=== PATIENT | female | born 1955 | race Caucasian/White ===

== ENCOUNTER 2020-07-07 05:19 | Observation (INO) ==
[2020-07-07] MEDS ORDERED: Naloxone 0.4 MG/ML INJ IVP PRN (07:48)
[2020-07-07] MEDS ORDERED: Perflutren Lipid Microsphere 1.3 ML in 0.9 % Sodium Chloride 8.7 ML IVP PRN (07:53)
[2020-07-07] MEDS ORDERED: Nitroglycerin 0.4 MG TAB.SUBL SL PRN (07:54)
[2020-07-07] MEDS ORDERED: Ipratropium/Albuterol Neb 3 ML IH PRN (07:54)
[2020-07-07] MEDS ORDERED: Dextrose Gel 15 GM/37.5 ML TUBE PO PRN ×2 (07:55)
[2020-07-07] MEDS ORDERED: *HR* Dextrose 50 % in Water (Vial) 50 ML VIAL IVP PRN (07:55)
[2020-07-07] MEDS ORDERED: D5% in Water 1,000 ML IVC PRN (07:55)
[2020-07-07 07:59] LABS: Adenovirus Not Detected (Not Detect); Bordetella Pertussis Not Detected (Not Detect); Chlamydophila pneumoniae Not Detected (Not Detect); Coronavirus 229E Not Detected (Not Detect); Coronavirus HKU1 Not Detected (Not Detect); Coronavirus NL63 Not Detected (Not Detect); Coronavirus OC43 Not Detected (Not Detect); Human Metapneumovirus Not Detected (Not Detect); Human Rhinovirus/Enterovirus DETECTED (Not Detect); Influenza A Subtype 2009 H1 Not Detected (Not Detect); Influenza B Not Detected (Not Detect); Mycoplasma pneumoniae Not Detected (Not Detect); Parainfluenza Virus 1 Not Detected (Not Detect); Parainfluenza Virus 2 Not Detected (Not Detect); Parainfluenza Virus 3 Not Detected (Not Detect); Parainfluenza Virus 4 Not Detected (Not Detect); Respiratory Syncytial Virus Not Detected (Not Detect); SARS-CoV-2 Not Detected (Not Detect)
[2020-07-07] MEDS: cloNIDine HCL 0.1 MG TABLET PO SCH ×4 (08:04→20:12)
[2020-07-07] MEDS ORDERED: methylPREDNISolone 125 MG/2 ML VIAL IVP ONE (09:12)
[2020-07-07 09:23] LABS: Basophils % 0.5 %; Eosinophils # 0.2 K/mcL (0.0-0.6); Eosinophils % 2.1 %; Hematocrit 34.7 % (35.3-44.9); Hemoglobin 11.2 g/dL (11.5-15.4); Immature Granulocytes % 0.3 % (0-4); Lymphocytes # 1.3 K/mcL (0.6-4.6); Lymphocytes % 16.4 %; Mean Corpuscular HGB Conc 32.3 g/dL (31.6-35.5); Mean Corpuscular Hemoglobin 28.6 pg (28.0-33.3); Mean Corpuscular Volume 88.7 fL (83.0-100.0); Mean Platelet Volume 10.5 fL (9.4-12.4); Monocytes # 0.5 K/mcL (0.0-1.3); Monocytes % 6.2 %; Neutrophils # 5.7 K/mcL (1.6-8.9); Platelet Count 226 K/mcL (140-400); Red Blood Count 3.91 M/mcL (3.82-4.97); Red Cell Distribution Width 14.6 % (11.5-14.5); Segmented Neutrophils % 74.5 %; White Blood Count 7.6 K/mcL (4.3-11.1)
[2020-07-07 09:45] LABS: BUN/Creatinine Ratio 19 (6-26); Blood Urea Nitrogen 16 mg/dL (8-23); Calcium 9.1 mg/dL (8.6-10.3); Carbon Dioxide 27 mEq/L (23-29); Chloride 106 mEq/L (98-107); Chol/HDL Ratio 3.7 (0-4.9); Cholesterol 147 mg/dL (< 200); Glucose 152 mg/dL (70-105); HDL Cholesterol 40 mg/dL (40-59); LDL Cholesterol,Calculated 63 mg/dL (< 100); Magnesium 1.8 mg/dL (1.6-2.6); Osmolality,Calculated 298 (280-300); Phosphorous 4.2 mg/dL (2.7-4.5); Potassium 3.9 mEq/L (3.5-5.1); Sodium 142 mEq/L (136-145); Triglycerides 218 mg/dL (< 150); Troponin I < 0.03 ng/mL (< 0.04); eGFR For African Americans > 60 (> 60); eGFR For Non-African Americans > 60 (> 60)
[2020-07-07 10:30] LABS: Estimated Average Glucose 163 mg/dl
[2020-07-07 10:33] LABS: INR 0.9; Prothrombin Time 10.3 Seconds (9.4-12.1)
[2020-07-07] MEDS: Ipratropium/Albuterol Neb 3 ML IH SCH ×5 (10:49→23:16)
[2020-07-07] MEDS: Insulin LISPRO 300 UNITS/3 ML VIAL SQ SCH ×2 (12:47→16:47)
[2020-07-07] MEDS: MethylPREDNISolone 40 MG/ML VIAL IVP SCH ×2 (16:48→23:33)
[2020-07-07] MEDS: *HR* Heparin 5,000 UNIT/ML VIAL SQ SCH (17:31)
[2020-07-07] MEDS ORDERED: *HR* OxyCODONE Immed Rel 5 MG TABLET PO ONE (20:13)
[2020-07-07] MEDS ORDERED: Acetaminophen 325 MG TABLET PO ONE (23:53)
[2020-07-08] MEDS: Ipratropium/Albuterol Neb 3 ML IH SCH ×6 (03:35→23:56)
[2020-07-08] MEDS: *HR* Heparin 5,000 UNIT/ML VIAL SQ SCH ×2 (05:17→16:22)
[2020-07-08] MEDS: cefTRIAXone 1,000 MG in Water for inj. (sterile) 10 ML IVP SCH (07:54)
[2020-07-08] MEDS: cloNIDine HCL 0.1 MG TABLET PO SCH ×3 (07:55→20:21)
[2020-07-08] MEDS: MethylPREDNISolone 40 MG/ML VIAL IVP SCH ×3 (07:55→23:35)
[2020-07-08] MEDS: Insulin LISPRO 300 UNITS/3 ML VIAL SQ SCH ×3 (08:03→16:54)
[2020-07-08] MEDS: *HR* OxyCODONE/APAP 10/325 TABLET PO SCH ×2 (08:36→20:22)
[2020-07-08] MEDS: Gabapentin 400 MG CAPSULE PO SCH ×3 (08:36→20:22)
[2020-07-08 09:35] LABS: Basophils % 0.1 %; Hemoglobin 11.2 g/dL (11.5-15.4); Immature Granulocytes % 0.8 % (0-4); Lymphocytes # 0.7 K/mcL (0.6-4.6); Lymphocytes % 5.5 %; Mean Corpuscular HGB Conc 31.1 g/dL (31.6-35.5); Mean Corpuscular Hemoglobin 27.6 pg (28.0-33.3); Mean Corpuscular Volume 88.7 fL (83.0-100.0); Mean Platelet Volume 11.1 fL (9.4-12.4); Monocytes # 0.3 K/mcL (0.0-1.3); Monocytes % 2.6 %; Neutrophils # 11.2 K/mcL (1.6-8.9); Platelet Count 246 K/mcL (140-400); Red Blood Count 4.06 M/mcL (3.82-4.97); Red Cell Distribution Width 14.3 % (11.5-14.5)
[2020-07-08 09:39] LABS: White Blood Count 12.3 K/mcL (4.3-11.1)
[2020-07-08 09:55] LABS: BUN/Creatinine Ratio 22 (6-26); Blood Urea Nitrogen 24 mg/dL (8-23); Carbon Dioxide 24 mEq/L (23-29); Chloride 103 mEq/L (98-107); Glucose 291 mg/dL (70-105); Osmolality,Calculated 303 (280-300); Potassium 3.9 mEq/L (3.5-5.1); Sodium 139 mEq/L (136-145); eGFR For African Americans > 60 (> 60); eGFR For Non-African Americans 50 (> 60)
[2020-07-08] MEDS: lamoTRIgine 100 MG TABLET PO SCH (16:21)
[2020-07-08] MEDS ORDERED: Insulin DETEMIR 100 UNIT/ML X5UNITS SQ SCH (21:00)
[2020-07-09] MEDS: Ipratropium/Albuterol Neb 3 ML IH SCH ×3 (03:32→12:14)
[2020-07-09] MEDS: *HR* Heparin 5,000 UNIT/ML VIAL SQ SCH (04:34)
[2020-07-09 05:37] LABS: Basophils % 0.1 %; Hematocrit 32.6 % (35.3-44.9); Hemoglobin 10.4 g/dL (11.5-15.4); Immature Granulocytes % 1.1 % (0-4); Lymphocytes # 0.5 K/mcL (0.6-4.6); Lymphocytes % 5.3 %; Mean Corpuscular HGB Conc 31.9 g/dL (31.6-35.5); Mean Corpuscular Hemoglobin 28.5 pg (28.0-33.3); Mean Corpuscular Volume 89.3 fL (83.0-100.0); Mean Platelet Volume 10.6 fL (9.4-12.4); Monocytes # 0.3 K/mcL (0.0-1.3); Monocytes % 2.7 %; Neutrophils # 9.2 K/mcL (1.6-8.9); Platelet Count 205 K/mcL (140-400); Red Blood Count 3.65 M/mcL (3.82-4.97); Red Cell Distribution Width 14.3 % (11.5-14.5); Segmented Neutrophils % 90.8 %; White Blood Count 10.1 K/mcL (4.3-11.1)
[2020-07-09 05:56] LABS: Calcium 8.5 mg/dL (8.6-10.3); Potassium 4.6 mEq/L (3.5-5.1)
[2020-07-09] MEDS: Gabapentin 400 MG CAPSULE PO SCH (08:16)
[2020-07-09] MEDS: lamoTRIgine 100 MG TABLET PO SCH (08:17)
[2020-07-09] MEDS: cloNIDine HCL 0.1 MG TABLET PO SCH (08:17)
[2020-07-09] MEDS: *HR* OxyCODONE/APAP 10/325 TABLET PO SCH (08:17)
[2020-07-09] MEDS: MethylPREDNISolone 40 MG/ML VIAL IVP SCH (08:18)
[2020-07-09] MEDS: cefTRIAXone 1,000 MG in Water for inj. (sterile) 10 ML IVP SCH (08:18)
[2020-07-09] MEDS: Insulin LISPRO 300 UNITS/3 ML VIAL SQ SCH ×2 (08:31→11:14)
[2020-07-09] MEDS ORDERED: NIFEdipine XL (24 HR) 60 MG TAB.ER.24 PO SCH (09:00)
[2020-07-09 10:52] VITALS: BP 181/75
== END 2020-07-09 13:15 | disposition home or self-care (01) ==
LOC: 3BNU → SUATTDRO 06:52 → CDU 07:03 → 3ANU 08:47
PROVIDERS: ADMIT Internal Medicine; ATTEND Internal Medicine

== ENCOUNTER 2021-10-30 14:50 | Inpatient (IN) ==
[2021-10-30] MEDS ORDERED: Ondansetron 4 MG/2 ML VIAL IVP PRN (15:46)
[2021-10-30] MEDS ORDERED: Melatonin 3 MG TABLET PO PRN (15:46)
[2021-10-30] MEDS ORDERED: traZODone 50 MG TABLET PO PRN (16:16)
[2021-10-30] MEDS: cefTRIAXone 1,000 MG in Water for inj. (sterile) 10 ML IVP SCH (18:31)
[2021-10-30] MEDS: Gabapentin 100 MG CAPSULE PO SCH (20:31)
[2021-10-30] MEDS: Metoprolol XL (24 HR) Succ 25 MG TAB.ER.24H PO SCH (20:31)
[2021-10-31] MEDS: Acetaminophen 325 MG TABLET PO PRN ×2 (00:11→08:46)
[2021-10-31 03:53] LABS: ABG Base Excess -4 mEq/L (-2 to 3); ABG HCO3 22 mEq/L (21-27); ABG Oxygen Saturation 82 % (95-98); ABG PCO2 42 mmHg (35-45); ABG PH 7.32 pH Units (7.32-7.45); ABG PO2 50 mmHg (85-104); ABG TCO2 23 mEq/L (20-26); Blood Gas Modality NIV
[2021-10-31] MEDS ORDERED: *HR* LORazepam 2 MG/ML VIAL IVP ONE (05:06)
[2021-10-31 05:08] LABS: VBG HCO3 22 mEq/L (21-27); VBG PCO2 37 mmHg (41-51); VBG PH 7.37 pH Units (7.32-7.42); VBG PO2 125 mmHg (25-50)
[2021-10-31 05:08] LABS: Hematocrit 33.1 % (35.3-44.9); Hemoglobin 10.6 g/dL (11.5-15.4); Mean Corpuscular Hemoglobin 28.3 pg (28.0-33.3); Mean Corpuscular Volume 88.5 fL (83.0-100.0); Mean Platelet Volume 10.9 fL (9.4-12.4); Platelet Count 223 K/mcL (140-400); Red Blood Count 3.74 M/mcL (3.82-4.97); White Blood Count 13.1 K/mcL (4.3-11.1)
[2021-10-31] MEDS: Ipratropium 1 PUFF INHALER IH SCH ×6 (05:17→23:12)
[2021-10-31 05:36] LABS: INR 1.1; Prothrombin Time 12.5 Seconds (9.4-12.1)
[2021-10-31 05:39] LABS: Albumin 3.1 g/dL (3.5-5.7); Albumin/Globulin Ratio 1.1 (1.1-2.2); Bilirubin,Total 0.2 mg/dL (0.3-1.0); Calcium 7.8 mg/dL (8.6-10.3); Globulin 2.9 g/dL (2.4-3.5); Phosphorous 4.4 mg/dL (2.7-4.5); Potassium 4.2 mEq/L (3.5-5.1)
[2021-10-31] MEDS ORDERED: *HR* Enoxaparin 40 MG/0.4 ML SYRINGE SQ SCH (06:00)
[2021-10-31] MEDS ORDERED: Artificial Tears SOLN 15 ML BOTTLE BOTH EYES PRN (07:20)
[2021-10-31] MEDS: FentaNYL (PF) 1,000 MCG/100 ML IV.SOLN IVC SCH ×3 (07:30→21:25)
[2021-10-31 07:49] LABS: ABG Base Excess -5 mEq/L (-2 to 3); ABG HCO3 21 mEq/L (21-27); ABG Oxygen Saturation 85 % (95-98); ABG PCO2 43 mmHg (35-45); ABG PH 7.31 pH Units (7.32-7.45); ABG PO2 54 mmHg (85-104); ABG TCO2 23 mEq/L (20-26); Blood Gas VT 470 cc
[2021-10-31] MEDS: Gabapentin 100 MG CAPSULE PO SCH ×2 (08:00→13:20)
[2021-10-31] MEDS: Dexamethasone Sodium Phos/PF 10 MG/ML VIAL IVP SCH (08:46)
[2021-10-31] MEDS: Chlorhexidine Rinse 15 ML MOUTHWASH MM SCH ×2 (08:46→20:01)
[2021-10-31] MEDS: cefTRIAXone 1,000 MG in Water for inj. (sterile) 10 ML IVP SCH (08:46)
[2021-10-31] MEDS: Pantoprazole 40 MG VIAL IVP SCH (08:47)
[2021-10-31] MEDS ORDERED: BuPROPion SR (12 HR) 150 MG TABLET PO SCH (09:00)
[2021-10-31] MEDS ORDERED: lamoTRIgine 100 MG TABLET PO SCH (09:00)
[2021-10-31] MEDS ORDERED: NIFEdipine XL (24 HR) 60 MG TAB.ER.24 PO SCH (09:00)
[2021-10-31 09:25] LABS: Bilirubin,Urine Negative (Negative); Blood,Urine Trace (Negative); Budding Yeast,Urine Moderate per hpf (None Seen); Clarity,Urine Turbid (Clear); Color,Urine Yellow (Yellow); Glucose,Urine (UA) 100 mg/dL (Normal); Ketones,Urine Negative (Negative); Leukocyte Esterase,Urine Negative (Negative); Mucus,Urine Few per lpf (None-Few); Nitrite,Urine Negative (Negative); Protein,Urine 200 mg/dL (Neg-Trace); RBC,Urine 0-3 per hpf (0-3); Squamous Epithelial Cell,Urine Few per hpf (None-Few); Urobilinogen,Urine Normal (Normal); WBC,Urine 0-3 per hpf (0-3)
[2021-10-31 09:33] LABS: Sodium, Urine 27.3 mEq/L
[2021-10-31] MEDS: Insulin DETEMIR 100 UNIT/ML X5UNITS SUBQ SCH (10:00)
[2021-10-31] MEDS: Artificial Tears SOLN 15 ML BOTTLE BOTH EYES SCH ×5 (10:00→23:33)
[2021-10-31] MEDS ORDERED: 0.9 % Sodium Chloride 1,000 ML ONE (10:27)
[2021-10-31] MEDS: Metoprolol XL (24 HR) Succ 25 MG TAB.ER.24H PO SCH ×2 (11:00→19:57)
[2021-10-31] MEDS ORDERED: *HR* Dextrose 50 % in Water (Syg) 50 ML SYRINGE IVP PRN (12:54)
[2021-10-31] MEDS: Sodium Bicarbonate 75 MEQ in 0.45 % Sodium Chloride 1,000 ML IVC SCH (13:25)
[2021-10-31] MEDS ORDERED: 0.9 % Sodium Chloride 1,000 ML IVC SCH (13:30)
[2021-10-31 13:53] LABS: ABG Base Excess -6 mEq/L (-2 to 3); ABG HCO3 20 mEq/L (21-27); ABG Oxygen Saturation 98 % (95-98); ABG PCO2 40 mmHg (35-45); ABG PH 7.32 pH Units (7.32-7.45); ABG PO2 111 mmHg (85-104); ABG TCO2 22 mEq/L (20-26); Blood Gas VT 470 cc
[2021-10-31] MEDS ORDERED: *HR* Heparin 5,000 UNIT/ML VIAL IVP ONE (13:54)
[2021-10-31] MEDS ORDERED: *HR* Heparin 5,000 UNIT/ML VIAL IVP PRN ×2 (13:54)
[2021-10-31] MEDS ORDERED: *HR* Midazolam HCl 2 MG/2 ML VIAL IVP ONE (13:55)
[2021-10-31] MEDS ORDERED: *HR* Propofol 200 MG/20 ML VIAL IVP ONE (13:55)
[2021-10-31] MEDS ORDERED: *HR* Succinylcholine 200 MG/10 ML VIAL IVP ONE (13:55)
[2021-10-31] MEDS ORDERED: *HR* Midazolam HCl 5 MG/5 ML VIAL IVP ONE (13:55)
[2021-10-31] MEDS ORDERED: Vancomycin 1,750 MG in 0.9 % Sodium Chloride 250 ML IVPB SCH (14:00)
[2021-10-31] MEDS ORDERED: Vancomycin 2,000 MG/520 ML IV.SOLN IVPB ONE (14:50)
[2021-10-31] MEDS: Heparin 25,000UNIT/250ML 1/2NS 25,000 UNIT/250 ML IV.SOLN IVC SCH (16:07)
[2021-10-31] MEDS: Cefepime HCl 1,000 MG in 0.9 % Sodium Chloride Mini Bag 100 ML IVP SCH ×2 (16:10→23:51)
[2021-10-31] MEDS: MetroNIDAZOLE 500 MG/100 ML 500 MG/100 ML BAG IVPB SCH (16:10)
[2021-10-31] MEDS: Insulin LISPRO 300 UNITS/3 ML VIAL SUBQ SCH ×2 (18:05→23:52)
[2021-10-31 23:21] LABS: INR 1.2; Prothrombin Time 13.2 Seconds (9.4-12.1)
[2021-10-31 23:25] LABS: ABG Base Excess -6 mEq/L (-2 to 3); ABG HCO3 20 mEq/L (21-27); ABG Oxygen Saturation 97 % (95-98); ABG PCO2 40 mmHg (35-45); ABG PH 7.31 pH Units (7.32-7.45); ABG PO2 97 mmHg (85-104); ABG TCO2 21 mEq/L (20-26); Blood Gas Modality ASSIST CONTROL; Blood Gas VT 470 cc
[2021-10-31 23:26] LABS: Heparin anti-factor XA UFH 1.74 IU/mL (0.30-0.70)
[2021-11-01] MEDS: MetroNIDAZOLE 500 MG/100 ML 500 MG/100 ML BAG IVPB SCH ×4 (01:21→23:52)
[2021-11-01] MEDS: Ipratropium 1 PUFF INHALER IH SCH ×6 (03:13→22:54)
[2021-11-01] MEDS: Artificial Tears SOLN 15 ML BOTTLE BOTH EYES SCH ×6 (03:30→23:50)
[2021-11-01 04:13] LABS: Hematocrit 30.2 % (35.3-44.9); Hemoglobin 9.8 g/dL (11.5-15.4); Mean Corpuscular HGB Conc 32.5 g/dL (31.6-35.5); Mean Corpuscular Hemoglobin 28.6 pg (28.0-33.3); Mean Platelet Volume 10.7 fL (9.4-12.4); Platelet Count 193 K/mcL (140-400); Red Blood Count 3.43 M/mcL (3.82-4.97); Red Cell Distribution Width 15.3 % (11.5-14.5); White Blood Count 11.1 K/mcL (4.3-11.1)
[2021-11-01 04:24] LABS: Calcium 7.5 mg/dL (8.6-10.3); Magnesium 2.2 mg/dL (1.6-2.6); Phosphorous 6.3 mg/dL (2.7-4.5); Potassium 4.4 mEq/L (3.5-5.1)
[2021-11-01] MEDS ORDERED: Calcium Gluconate 1gm/50mL 1 GM/50 ML BAG IVPB PRN (04:40)
[2021-11-01 05:00] LABS: ABG Base Excess -6 mEq/L (-2 to 3); ABG HCO3 20 mEq/L (21-27); ABG Oxygen Saturation 96 % (95-98); ABG PCO2 38 mmHg (35-45); ABG PH 7.32 pH Units (7.32-7.45); ABG PO2 86 mmHg (85-104); ABG TCO2 21 mEq/L (20-26); Blood Gas Modality ASSIST CONTROL; Blood Gas VT 470 cc
[2021-11-01] MEDS: FentaNYL (PF) 1,000 MCG/100 ML IV.SOLN IVC SCH ×4 (05:25→21:30)
[2021-11-01] MEDS: Insulin LISPRO 300 UNITS/3 ML VIAL SUBQ SCH ×4 (06:06→23:51)
[2021-11-01] MEDS: Pantoprazole 40 MG VIAL IVP SCH (08:22)
[2021-11-01] MEDS: Dexamethasone Sodium Phos/PF 10 MG/ML VIAL IVP SCH (08:23)
[2021-11-01] MEDS: Chlorhexidine Rinse 15 ML MOUTHWASH MM SCH ×2 (08:23→20:14)
[2021-11-01] MEDS: lamoTRIgine 100 MG TABLET GTUBE SCH (08:23)
[2021-11-01] MEDS: Cefepime HCl 1,000 MG in 0.9 % Sodium Chloride Mini Bag 100 ML IVP SCH ×2 (08:23→17:30)
[2021-11-01] MEDS: Insulin DETEMIR 100 UNIT/ML X5UNITS SUBQ SCH (08:29)
[2021-11-01] MEDS ORDERED: Lidocaine/EPI 1:100k 1% 50 ML VIAL ONE (09:13)
[2021-11-01] MEDS ORDERED: Heparin 1,000 UNITS/500 mL 500 ML ONE (09:13)
[2021-11-01] MEDS ORDERED: 0.9 % Sodium Chloride 250 ML IVC PRN (10:29)
[2021-11-01] MEDS ORDERED: 0.9 % Sodium Chloride 1,000 ML PRIME SCH (10:30)
[2021-11-01] MEDS ORDERED: *HR* Midazolam HCl 2 MG/2 ML VIAL IVP ONE (10:33)
[2021-11-01] MEDS: Sodium Bicarbonate 75 MEQ in 0.45 % Sodium Chloride 1,000 ML IVC SCH (10:38)
[2021-11-01] MEDS: Metoprolol XL (24 HR) Succ 25 MG TAB.ER.24H PO SCH ×2 (10:38→20:14)
[2021-11-01] MEDS ORDERED: *HR* Heparin 5,000 UNIT/ML VIAL ONE (11:21)
[2021-11-01] MEDS: Midazolam HCl 50 MG/100 ML IV.SOLN IVC SCH (11:25)
[2021-11-01 11:31] LABS: Hepatitis B Surface Antibody < 3.10 mIU/mL
[2021-11-01 11:41] LABS: Hepatitis B Surface Antigen Nonreactive (Nonreactive)
[2021-11-01] MEDS ORDERED: *HR* Heparin 10,000 UNIT/10 ML VIAL IV PRN (11:56)
[2021-11-01 13:18] LABS: Dohle Bodies Present (Not Present); Lymphocytes # 0.2 K/mcL (0.6-4.6); Neutrophils # 10.8 K/mcL (1.6-8.9)
[2021-11-01 13:20] LABS: Platelet Estimate Normal (Normal)
[2021-11-01] MEDS: Heparin 25,000UNIT/250ML 1/2NS 25,000 UNIT/250 ML IV.SOLN IVC SCH ×2 (17:31→23:08)
[2021-11-02] MEDS: Midazolam HCl 50 MG/100 ML IV.SOLN IVC SCH ×2 (00:56→15:25)
[2021-11-02] MEDS: FentaNYL (PF) 1,000 MCG/100 ML IV.SOLN IVC SCH ×4 (03:08→19:05)
[2021-11-02] MEDS: Artificial Tears SOLN 15 ML BOTTLE BOTH EYES SCH ×6 (03:16→23:11)
[2021-11-02 03:37] LABS: Basophils % 0.1 %; Hematocrit 29.5 % (35.3-44.9); Hemoglobin 9.7 g/dL (11.5-15.4); Lymphocytes # 0.2 K/mcL (0.6-4.6); Lymphocytes % 1.7 %; Mean Corpuscular HGB Conc 32.9 g/dL (31.6-35.5); Mean Corpuscular Hemoglobin 28.6 pg (28.0-33.3); Monocytes # 0.2 K/mcL (0.0-1.3); Monocytes % 1.7 %; Neutrophils # 10.1 K/mcL (1.6-8.9); Nucleated Red Blood Cells 0.2 /100 WBC (0); Platelet Count 228 K/mcL (140-400); Red Blood Count 3.39 M/mcL (3.82-4.97); Red Cell Distribution Width 15.4 % (11.5-14.5); Segmented Neutrophils % 92.5 %; White Blood Count 10.9 K/mcL (4.3-11.1)
[2021-11-02 04:11] LABS: Platelet Estimate Normal (Normal)
[2021-11-02 04:12] LABS: Calcium 7.5 mg/dL (8.6-10.3); Potassium 3.7 mEq/L (3.5-5.1)
[2021-11-02] MEDS: Ipratropium 1 PUFF INHALER IH SCH ×6 (04:14→22:50)
[2021-11-02] MEDS: Insulin LISPRO 300 UNITS/3 ML VIAL SUBQ SCH ×3 (05:08→17:15)
[2021-11-02] MEDS: Cefepime HCl 1,000 MG in 0.9 % Sodium Chloride Mini Bag 100 ML IVP SCH ×2 (05:11→17:16)
[2021-11-02 05:19] LABS: ABG Base Excess -1 mEq/L (-2 to 3); ABG HCO3 24 mEq/L (21-27); ABG Oxygen Saturation 96 % (95-98); ABG PCO2 40 mmHg (35-45); ABG PH 7.39 pH Units (7.32-7.45); ABG PO2 83 mmHg (85-104); ABG TCO2 25 mEq/L (20-26); Blood Gas Modality ASSIST CONTROL; Blood Gas VT 470 cc
[2021-11-02] MEDS ORDERED: 0.9 % Sodium Chloride 250 ML IVC PRN (06:56)
[2021-11-02] MEDS: MetroNIDAZOLE 500 MG/100 ML 500 MG/100 ML BAG IVPB SCH ×3 (08:49→23:14)
[2021-11-02] MEDS: lamoTRIgine 100 MG TABLET GTUBE SCH (08:49)
[2021-11-02] MEDS: Metoprolol XL (24 HR) Succ 25 MG TAB.ER.24H PO SCH ×3 (08:49→20:27)
[2021-11-02] MEDS: Chlorhexidine Rinse 15 ML MOUTHWASH MM SCH ×2 (08:49→20:21)
[2021-11-02] MEDS: Dexamethasone Sodium Phos/PF 10 MG/ML VIAL IVP SCH (08:50)
[2021-11-02] MEDS: Pantoprazole 40 MG VIAL IVP SCH (08:51)
[2021-11-02] MEDS: Insulin DETEMIR 100 UNIT/ML X5UNITS SUBQ SCH (08:56)
[2021-11-02 11:07] LABS: VBG Ionized Calcium 0.94 mmol/L (1.15-1.35)
[2021-11-02] MEDS ORDERED: *HR* Heparin 10,000 UNIT/10 ML VIAL IV PRN (11:59)
[2021-11-02] MEDS: Heparin 25,000UNIT/250ML 1/2NS 25,000 UNIT/250 ML IV.SOLN IVC SCH ×2 (17:16→22:49)
[2021-11-03] MEDS: Insulin LISPRO 300 UNITS/3 ML VIAL SUBQ SCH ×5 (00:02→23:38)
[2021-11-03] MEDS: FentaNYL (PF) 1,000 MCG/100 ML IV.SOLN IVC SCH ×5 (00:15→18:38)
[2021-11-03 03:43] LABS: Hematocrit 29.2 % (35.3-44.9); Hemoglobin 9.6 g/dL (11.5-15.4); Mean Corpuscular HGB Conc 32.9 g/dL (31.6-35.5); Mean Corpuscular Hemoglobin 28.3 pg (28.0-33.3); Mean Corpuscular Volume 86.1 fL (83.0-100.0); Mean Platelet Volume 10.8 fL (9.4-12.4); Platelet Count 224 K/mcL (140-400); Red Blood Count 3.39 M/mcL (3.82-4.97); Red Cell Distribution Width 15.3 % (11.5-14.5); White Blood Count 10.5 K/mcL (4.3-11.1)
[2021-11-03] MEDS: Ipratropium 1 PUFF INHALER IH SCH ×6 (03:46→23:29)
[2021-11-03 03:47] LABS: VBG HCO3 23 mEq/L (21-27); VBG Ionized Calcium 0.96 mmol/L (1.15-1.35); VBG PCO2 36 mmHg (41-51); VBG PH 7.43 pH Units (7.32-7.42); VBG PO2 112 mmHg (25-50)
[2021-11-03 04:02] LABS: Calcium 7.4 mg/dL (8.6-10.3); Magnesium 1.9 mg/dL (1.6-2.6); Phosphorous 5.2 mg/dL (2.7-4.5); Potassium 3.9 mEq/L (3.5-5.1)
[2021-11-03] MEDS: Artificial Tears SOLN 15 ML BOTTLE BOTH EYES SCH ×6 (04:02→23:38)
[2021-11-03 04:33] LABS: Lymphocytes # 0.6 K/mcL (0.6-4.6); Monocytes # 0.4 K/mcL (0.0-1.3); Neutrophils # 9.5 K/mcL (1.6-8.9); Toxic Granulation Present (Not Present)
[2021-11-03 04:34] LABS: Platelet Estimate Normal (Normal)
[2021-11-03 04:57] LABS: ABG Base Excess 0 mEq/L (-2 to 3); ABG HCO3 25 mEq/L (21-27); ABG Oxygen Saturation 87 % (95-98); ABG PCO2 42 mmHg (35-45); ABG PH 7.39 pH Units (7.32-7.45); ABG PO2 53 mmHg (85-104); ABG TCO2 26 mEq/L (20-26); Blood Gas Modality ASSIST CONTROL; Blood Gas VT 470 cc
[2021-11-03] MEDS: Calcium Gluconate 1gm/50mL 1 GM/50 ML BAG IVPB PRN ×3 (05:14→21:19)
[2021-11-03] MEDS: Cefepime HCl 1,000 MG in 0.9 % Sodium Chloride Mini Bag 100 ML IVP SCH ×2 (06:25→16:53)
[2021-11-03] MEDS ORDERED: *HR* Rocuronium Bromide 50 MG/5 ML VIAL IVP ONE (07:44)
[2021-11-03] MEDS: lamoTRIgine 100 MG TABLET GTUBE SCH (07:47)
[2021-11-03] MEDS: Dexamethasone Sodium Phos/PF 10 MG/ML VIAL IVP SCH (07:47)
[2021-11-03] MEDS: Chlorhexidine Rinse 15 ML MOUTHWASH MM SCH ×2 (07:47→20:41)
[2021-11-03] MEDS: Pantoprazole 40 MG VIAL IVP SCH (07:47)
[2021-11-03] MEDS: MetroNIDAZOLE 500 MG/100 ML 500 MG/100 ML BAG IVPB SCH ×3 (07:48→23:38)
[2021-11-03] MEDS: Insulin DETEMIR 100 UNIT/ML X5UNITS SUBQ SCH (07:49)
[2021-11-03] MEDS: Cisatracurium 200 MG in 0.9 % Sodium Chloride 180 ML IVC SCH ×2 (08:33→18:37)
[2021-11-03] MEDS: Midazolam HCl 50 MG/100 ML IV.SOLN IVC SCH ×3 (08:40→21:10)
[2021-11-03] MEDS ORDERED: Furosemide 80 MG in 0.9 % Sodium Chloride 50 ML IVPB ONE (09:11)
[2021-11-03 10:58] LABS: VBG Ionized Calcium 1.02 mmol/L (1.15-1.35)
[2021-11-03 16:09] LABS: ABG Base Excess -3 mEq/L (-2 to 3); ABG HCO3 23 mEq/L (21-27); ABG Oxygen Saturation 99 % (95-98); ABG PCO2 42 mmHg (35-45); ABG PH 7.34 pH Units (7.32-7.45); ABG PO2 129 mmHg (85-104); ABG TCO2 24 mEq/L (20-26); Blood Gas Modality ASSIST CONTROL; Blood Gas VT 470 cc
[2021-11-03] MEDS ORDERED: *HR* OxyCODONE Immed Rel 5 MG TABLET PO PRN (17:06)
[2021-11-03] MEDS ORDERED: *HR* Heparin 5,000 UNIT/ML VIAL IVP PRN ×2 (17:32)
[2021-11-03] MEDS: Heparin 25,000UNIT/250ML 1/2NS 25,000 UNIT/250 ML IV.SOLN IVC SCH (20:27)
[2021-11-03] MEDS ORDERED: Potassium Chloride 40 MEQ/200 ML BAG IVPB PRN (20:32)
[2021-11-03] MEDS ORDERED: rOPINIRole 1 MG TABLET PO SCH ×2 (21:00)
[2021-11-03] MEDS ORDERED: traZODone 50 MG TABLET PO SCH (21:00)
[2021-11-04] MEDS: FentaNYL (PF) 1,000 MCG/100 ML IV.SOLN IVC SCH ×5 (00:15→21:21)
[2021-11-04] MEDS: Artificial Tears SOLN 15 ML BOTTLE BOTH EYES SCH ×6 (03:08→23:31)
[2021-11-04] MEDS: Midazolam HCl 50 MG/100 ML IV.SOLN IVC SCH ×3 (03:40→18:26)
[2021-11-04] MEDS: Ipratropium 1 PUFF INHALER IH SCH ×6 (04:03→22:48)
[2021-11-04 04:21] LABS: ABG Base Excess -5 mEq/L (-2 to 3); ABG HCO3 20 mEq/L (21-27); ABG Oxygen Saturation 98 % (95-98); ABG PCO2 37 mmHg (35-45); ABG PH 7.34 pH Units (7.32-7.45); ABG PO2 110 mmHg (85-104); ABG TCO2 21 mEq/L (20-26); Blood Gas Modality ASSIST CONTROL; Blood Gas VT 470 cc
[2021-11-04] MEDS: Cisatracurium 200 MG in 0.9 % Sodium Chloride 180 ML IVC SCH ×2 (04:30→14:50)
[2021-11-04 04:52] LABS: VBG Ionized Calcium 0.96 mmol/L (1.15-1.35)
[2021-11-04 05:21] LABS: Magnesium 2.4 mg/dL (1.6-2.6); Phosphorous 7.8 mg/dL (2.7-4.5)
[2021-11-04] MEDS: Heparin 25,000UNIT/250ML 1/2NS 25,000 UNIT/250 ML IV.SOLN IVC SCH (05:36)
[2021-11-04] MEDS: Cefepime HCl 1,000 MG in 0.9 % Sodium Chloride Mini Bag 100 ML IVP SCH ×2 (05:39→17:29)
[2021-11-04] MEDS: Calcium Gluconate 1gm/50mL 1 GM/50 ML BAG IVPB PRN (05:40)
[2021-11-04] MEDS: Insulin LISPRO 300 UNITS/3 ML VIAL SUBQ SCH ×3 (05:51→17:29)
[2021-11-04 06:40] LABS: Hematocrit 33.5 % (35.3-44.9); Hemoglobin 10.5 g/dL (11.5-15.4); Mean Corpuscular HGB Conc 31.3 g/dL (31.6-35.5); Mean Corpuscular Hemoglobin 27.4 pg (28.0-33.3); Mean Corpuscular Volume 87.5 fL (83.0-100.0); Mean Platelet Volume 11.7 fL (9.4-12.4); Platelet Count 247 K/mcL (140-400); Red Blood Count 3.83 M/mcL (3.82-4.97); Red Cell Distribution Width 15.7 % (11.5-14.5); White Blood Count 12.3 K/mcL (4.3-11.1)
[2021-11-04 06:43] LABS: Calcium 7.8 mg/dL (8.6-10.3); Potassium 4.1 mEq/L (3.5-5.1)
[2021-11-04] MEDS: MetroNIDAZOLE 500 MG/100 ML 500 MG/100 ML BAG IVPB SCH ×3 (07:36→23:30)
[2021-11-04] MEDS: lamoTRIgine 100 MG TABLET GTUBE SCH (07:36)
[2021-11-04] MEDS: Chlorhexidine Rinse 15 ML MOUTHWASH MM SCH ×2 (07:36→19:48)
[2021-11-04] MEDS: Pantoprazole 40 MG VIAL IVP SCH (07:36)
[2021-11-04] MEDS ORDERED: 0.9 % Sodium Chloride 250 ML IVC PRN (08:10)
[2021-11-04] MEDS ORDERED: *HR* Heparin 10,000 UNIT/10 ML VIAL IV PRN (09:34)
[2021-11-04 09:41] LABS: Lymphocytes # 0.5 K/mcL (0.6-4.6); Monocytes # 0.5 K/mcL (0.0-1.3); Neutrophils # 10.3 K/mcL (1.6-8.9); Platelet Estimate Normal (Normal); Toxic Granulation Present (Not Present)
[2021-11-04 09:42] LABS: Anisocytosis 1+ (Not Present); Poikilocytosis 1+ (Not Present)
[2021-11-04] MEDS: Dexamethasone Sodium Phos/PF 10 MG/ML VIAL IVP SCH (10:37)
[2021-11-04] MEDS: Insulin DETEMIR 100 UNIT/ML X5UNITS SUBQ SCH (10:52)
[2021-11-04 11:07] LABS: VBG Ionized Calcium 0.99 mmol/L (1.15-1.35)
[2021-11-04] MEDS ORDERED: Calcium Chloride 2,000 MG in 0.9 % Sodium Chloride 100 ML IVPB ONE (13:45)
[2021-11-04 18:19] LABS: VBG Ionized Calcium 1.13 mmol/L (1.15-1.35)
[2021-11-05] MEDS: Insulin LISPRO 300 UNITS/3 ML VIAL SUBQ SCH ×5 (00:28→23:05)
[2021-11-05] MEDS: Heparin 25,000UNIT/250ML 1/2NS 25,000 UNIT/250 ML IV.SOLN IVC SCH ×2 (00:29→16:00)
[2021-11-05] MEDS: Midazolam HCl 50 MG/100 ML IV.SOLN IVC SCH ×4 (00:55→20:52)
[2021-11-05] MEDS: Cisatracurium 200 MG in 0.9 % Sodium Chloride 180 ML IVC SCH ×3 (01:05→21:40)
[2021-11-05] MEDS: FentaNYL (PF) 1,000 MCG/100 ML IV.SOLN IVC SCH ×5 (02:20→23:04)
[2021-11-05] MEDS: Ipratropium 1 PUFF INHALER IH SCH ×6 (03:26→23:41)
[2021-11-05 03:32] LABS: ABG Base Excess -4 mEq/L (-2 to 3); ABG HCO3 22 mEq/L (21-27); ABG Oxygen Saturation 94 % (95-98); ABG PCO2 41 mmHg (35-45); ABG PH 7.34 pH Units (7.32-7.45); ABG PO2 73 mmHg (85-104); ABG TCO2 23 mEq/L (20-26); Blood Gas Modality ASSIST CONTROL; Blood Gas VT 470 cc
[2021-11-05] MEDS: Artificial Tears SOLN 15 ML BOTTLE BOTH EYES SCH ×6 (03:37→20:30)
[2021-11-05 03:47] LABS: VBG Ionized Calcium 1.04 mmol/L (1.15-1.35)
[2021-11-05 03:47] LABS: Hematocrit 33.1 % (35.3-44.9); Hemoglobin 10.2 g/dL (11.5-15.4); Mean Corpuscular HGB Conc 30.8 g/dL (31.6-35.5); Mean Corpuscular Hemoglobin 27.1 pg (28.0-33.3); Mean Corpuscular Volume 87.8 fL (83.0-100.0); Mean Platelet Volume 11.7 fL (9.4-12.4); Nucleated Red Blood Cells 0.4 /100 WBC (0); Platelet Count 170 K/mcL (140-400); Red Blood Count 3.77 M/mcL (3.82-4.97); Red Cell Distribution Width 15.6 % (11.5-14.5); White Blood Count 10.4 K/mcL (4.3-11.1)
[2021-11-05 04:05] LABS: Calcium 8.1 mg/dL (8.6-10.3); Potassium 4.3 mEq/L (3.5-5.1)
[2021-11-05 04:10] LABS: Alanine Aminotransferase 23 Units/L (7-52); Albumin 2.5 g/dL (3.5-5.7); Albumin/Globulin Ratio 0.7 (1.1-2.2); Alkaline Phosphatase 95 Units/L (34-104); Aspartate Amino Transferase 61 Units/L (13-39); BUN/Creatinine Ratio 13 (6-26); Bilirubin,Total 0.4 mg/dL (0.3-1.0); Blood Urea Nitrogen 47 mg/dL (8-23); C-Reactive Protein > 300 mg/L (Less than 10); Calcium 8.2 mg/dL (8.6-10.3); Carbon Dioxide 20 mEq/L (23-29); Chloride 99 mEq/L (98-107); Globulin 3.6 g/dL (2.4-3.5); Glucose 97 mg/dL (70-105); Osmolality,Calculated 290 (280-300); Phosphorous 7.3 mg/dL (2.7-4.5); Potassium 4.2 mEq/L (3.5-5.1); Sodium 134 mEq/L (136-145); Total Protein 6.1 g/dL (6.4-8.9); eGFR For African Americans 15 (> 60); eGFR For Non-African Americans 12 (> 60)
[2021-11-05 04:33] LABS: Eosinophils # 0.2 K/mcL (0.0-0.6); Lymphocytes # 1.3 K/mcL (0.6-4.6); Neutrophils # 8.7 K/mcL (1.6-8.9)
[2021-11-05 04:34] LABS: Anisocytosis 1+ (Not Present); Platelet Estimate Normal (Normal)
[2021-11-05] MEDS: Calcium Gluconate 1gm/50mL 1 GM/50 ML BAG IVPB PRN (06:06)
[2021-11-05] MEDS: Chlorhexidine Rinse 15 ML MOUTHWASH MM SCH ×2 (07:29→20:30)
[2021-11-05] MEDS: MetroNIDAZOLE 500 MG/100 ML 500 MG/100 ML BAG IVPB SCH ×3 (07:29→23:06)
[2021-11-05] MEDS: Dexamethasone Sodium Phos/PF 10 MG/ML VIAL IVP SCH (07:29)
[2021-11-05] MEDS: Pantoprazole 40 MG VIAL IVP SCH (07:29)
[2021-11-05] MEDS: lamoTRIgine 100 MG TABLET GTUBE SCH (07:29)
[2021-11-05] MEDS ORDERED: *HR* Heparin 5,000 UNIT/ML VIAL IVP PRN (09:14)
[2021-11-05] MEDS ORDERED: 0.9 % Sodium Chloride 1,000 ML PRIME SCH (09:15)
[2021-11-05] MEDS: Insulin DETEMIR 100 UNIT/ML X5UNITS SUBQ SCH (09:25)
[2021-11-05] MEDS: Norepinephrine 4 MG/254 ML IV.SOLN IVC SCH ×3 (11:08→22:47)
[2021-11-05 11:58] LABS: VBG Ionized Calcium 1.04 mmol/L (1.15-1.35)
[2021-11-05] MEDS ORDERED: Vancomycin 1,750 MG/517.5 ML IV.SOLN IVPB ONE (12:00)
[2021-11-05] MEDS: PrismaSATE BGK 4/2.5 5,000 ML CRRT SCH ×8 (12:20→22:08)
[2021-11-05] MEDS ORDERED: CALCIUM CHLORIDE IVPB ONE (14:00)
[2021-11-05] MEDS ORDERED: SODIUM CHLORIDE 0.9% IVPB ONE (14:00)
[2021-11-05] MEDS: Cefepime HCl 1,000 MG in 0.9 % Sodium Chloride Mini Bag 100 ML IVP SCH (17:16)
[2021-11-05 18:31] LABS: VBG HCO3 21 mEq/L (21-27); VBG Ionized Calcium 1.14 mmol/L (1.15-1.35); VBG PCO2 46 mmHg (41-51); VBG PH 7.26 pH Units (7.32-7.42); VBG PO2 162 mmHg (25-50)
[2021-11-06] MEDS: PrismaSATE BGK 4/2.5 5,000 ML CRRT SCH ×14 (01:33→23:44)
[2021-11-06] MEDS: Artificial Tears SOLN 15 ML BOTTLE BOTH EYES SCH ×6 (03:11→23:23)
[2021-11-06 03:23] LABS: Hematocrit 31.5 % (35.3-44.9); Hemoglobin 10.1 g/dL (11.5-15.4); Immature Platelets 9.2 % (1.1-6.1); Mean Corpuscular HGB Conc 32.1 g/dL (31.6-35.5); Mean Corpuscular Hemoglobin 27.7 pg (28.0-33.3); Mean Corpuscular Volume 86.5 fL (83.0-100.0); Mean Platelet Volume 11.3 fL (9.4-12.4); Nucleated Red Blood Cells 0.3 /100 WBC (0); Platelet Count 115 K/mcL (140-400); Red Blood Count 3.64 M/mcL (3.82-4.97); Red Cell Distribution Width 15.9 % (11.5-14.5); White Blood Count 15.7 K/mcL (4.3-11.1)
[2021-11-06] MEDS: Ipratropium 1 PUFF INHALER IH SCH ×6 (03:32→23:25)
[2021-11-06 03:34] LABS: VBG Ionized Calcium 1.07 mmol/L (1.15-1.35)
[2021-11-06] MEDS: Norepinephrine 4 MG/254 ML IV.SOLN IVC SCH ×3 (03:35→19:30)
[2021-11-06] MEDS: Heparin 25,000UNIT/250ML 1/2NS 25,000 UNIT/250 ML IV.SOLN IVC SCH ×2 (03:35→23:11)
[2021-11-06 03:47] LABS: Alanine Aminotransferase 23 Units/L (7-52); Albumin 2.5 g/dL (3.5-5.7); Albumin/Globulin Ratio 0.7 (1.1-2.2); Alkaline Phosphatase 107 Units/L (34-104); Aspartate Amino Transferase 63 Units/L (13-39); BUN/Creatinine Ratio 15 (6-26); Bilirubin,Total 0.3 mg/dL (0.3-1.0); Blood Urea Nitrogen 35 mg/dL (8-23); C-Reactive Protein > 300 mg/L (Less than 10); Calcium 8.1 mg/dL (8.6-10.3); Carbon Dioxide 20 mEq/L (23-29); Chloride 101 mEq/L (98-107); Globulin 3.8 g/dL (2.4-3.5); Glucose 111 mg/dL (70-105); Magnesium 2.3 mg/dL (1.6-2.6); Osmolality,Calculated 289 (280-300); Phosphorous 5.3 mg/dL (2.7-4.5); Potassium 4.6 mEq/L (3.5-5.1); Sodium 135 mEq/L (136-145); Total Protein 6.3 g/dL (6.4-8.9); eGFR For African Americans 25 (> 60); eGFR For Non-African Americans 21 (> 60)
[2021-11-06 03:50] LABS: ABG Base Excess -4 mEq/L (-2 to 3); ABG HCO3 23 mEq/L (21-27); ABG Oxygen Saturation 91 % (95-98); ABG PCO2 45 mmHg (35-45); ABG PH 7.31 pH Units (7.32-7.45); ABG PO2 68 mmHg (85-104); ABG TCO2 24 mEq/L (20-26); Blood Gas VT 450 cc
[2021-11-06 03:57] LABS: Lymphocytes # 0.9 K/mcL (0.6-4.6); Monocytes # 0.9 K/mcL (0.0-1.3); Neutrophils # 13.8 K/mcL (1.6-8.9); Smudge Cells Present (Not Present); Toxic Granulation Present (Not Present)
[2021-11-06 03:58] LABS: Platelet Estimate Slight Decrease (Normal)
[2021-11-06] MEDS: Midazolam HCl 50 MG/100 ML IV.SOLN IVC SCH ×3 (04:03→17:41)
[2021-11-06] MEDS: FentaNYL (PF) 1,000 MCG/100 ML IV.SOLN IVC SCH ×4 (04:17→19:37)
[2021-11-06] MEDS: Calcium Gluconate 1gm/50mL 1 GM/50 ML BAG IVPB PRN (04:25)
[2021-11-06] MEDS: Insulin LISPRO 300 UNITS/3 ML VIAL SUBQ SCH ×4 (04:57→23:37)
[2021-11-06] MEDS: Chlorhexidine Rinse 15 ML MOUTHWASH MM SCH ×2 (08:02→20:30)
[2021-11-06] MEDS: MetroNIDAZOLE 500 MG/100 ML 500 MG/100 ML BAG IVPB SCH ×3 (08:02→23:24)
[2021-11-06] MEDS: lamoTRIgine 100 MG TABLET GTUBE SCH (08:03)
[2021-11-06] MEDS: Dexamethasone Sodium Phos/PF 10 MG/ML VIAL IVP SCH (08:03)
[2021-11-06] MEDS: Pantoprazole 40 MG VIAL IVP SCH (08:08)
[2021-11-06] MEDS: Cisatracurium 200 MG in 0.9 % Sodium Chloride 180 ML IVC SCH ×2 (08:10→17:40)
[2021-11-06] MEDS ORDERED: Vancomycin 1,250 MG/262.5 ML IV.SOLN IVPB ONE (09:00)
[2021-11-06] MEDS: Insulin DETEMIR 100 UNIT/ML X5UNITS SUBQ SCH (12:49)
[2021-11-06] MEDS: Cefepime HCl 1,000 MG in 0.9 % Sodium Chloride Mini Bag 100 ML IVP SCH (19:14)
[2021-11-07] MEDS: Midazolam HCl 50 MG/100 ML IV.SOLN IVC SCH ×4 (01:06→20:31)
[2021-11-07] MEDS: FentaNYL (PF) 1,000 MCG/100 ML IV.SOLN IVC SCH ×2 (01:42→06:25)
[2021-11-07] MEDS: PrismaSATE BGK 4/2.5 5,000 ML CRRT SCH ×14 (03:13→23:46)
[2021-11-07] MEDS: Norepinephrine 4 MG/254 ML IV.SOLN IVC SCH ×4 (03:57→22:07)
[2021-11-07] MEDS: Artificial Tears SOLN 15 ML BOTTLE BOTH EYES SCH ×6 (03:58→23:47)
[2021-11-07 04:12] LABS: VBG Ionized Calcium 1.04 mmol/L (1.15-1.35)
[2021-11-07] MEDS: Cisatracurium 200 MG in 0.9 % Sodium Chloride 180 ML IVC SCH ×3 (04:12→22:52)
[2021-11-07] MEDS ORDERED: Neosporin OINT 15 GM TUBE TP PRN (04:14)
[2021-11-07 04:17] LABS: Alanine Aminotransferase 22 Units/L (7-52); Albumin 2.3 g/dL (3.5-5.7); Albumin/Globulin Ratio 0.6 (1.1-2.2); Alkaline Phosphatase 114 Units/L (34-104); Aspartate Amino Transferase 56 Units/L (13-39); BUN/Creatinine Ratio 22 (6-26); Bilirubin,Total 0.3 mg/dL (0.3-1.0); Blood Urea Nitrogen 30 mg/dL (8-23); C-Reactive Protein > 300 mg/L (Less than 10); Calcium 7.7 mg/dL (8.6-10.3); Carbon Dioxide 22 mEq/L (23-29); Chloride 101 mEq/L (98-107); Globulin 3.8 g/dL (2.4-3.5); Glucose 158 mg/dL (70-105); Magnesium 2.4 mg/dL (1.6-2.6); Osmolality,Calculated 283 (280-300); Phosphorous 4.8 mg/dL (2.7-4.5); Potassium 4.7 mEq/L (3.5-5.1); Sodium 132 mEq/L (136-145); Total Protein 6.1 g/dL (6.4-8.9); eGFR For African Americans 46 (> 60); eGFR For Non-African Americans 38 (> 60)
[2021-11-07 04:45] LABS: ABG Base Excess -4 mEq/L (-2 to 3); ABG HCO3 23 mEq/L (21-27); ABG Oxygen Saturation 94 % (95-98); ABG PCO2 48 mmHg (35-45); ABG PH 7.29 pH Units (7.32-7.45); ABG PO2 79 mmHg (85-104); ABG TCO2 25 mEq/L (20-26); Blood Gas Modality ASSIST CONTROL; Blood Gas VT 420 cc
[2021-11-07] MEDS: Ipratropium 1 PUFF INHALER IH SCH ×6 (04:50→23:28)
[2021-11-07] MEDS: Calcium Gluconate 1gm/50mL 1 GM/50 ML BAG IVPB PRN ×3 (04:54→15:01)
[2021-11-07] MEDS: Insulin LISPRO 300 UNITS/3 ML VIAL SUBQ SCH ×3 (05:16→17:33)
[2021-11-07 05:17] LABS: Hemoglobin 9.8 g/dL (11.5-15.4)
[2021-11-07 05:19] LABS: Hematocrit 30.8 % (35.3-44.9); Immature Platelets 13.3 % (1.1-6.1); Mean Corpuscular HGB Conc 31.8 g/dL (31.6-35.5); Mean Corpuscular Hemoglobin 28.2 pg (28.0-33.3); Mean Corpuscular Volume 88.5 fL (83.0-100.0); Mean Platelet Volume 11.9 fL (9.4-12.4); Monocytes # 0.3 K/mcL (0.0-1.3); Nucleated Red Blood Cells 0.1 /100 WBC (0); Red Blood Count 3.48 M/mcL (3.82-4.97); Red Cell Distribution Width 15.9 % (11.5-14.5); White Blood Count 13.9 K/mcL (4.3-11.1)
[2021-11-07 05:34] LABS: Platelet Count 65 K/mcL (140-400)
[2021-11-07 05:55] LABS: Large Platelets Present (Not Present); Lymphocytes # 0.8 K/mcL (0.6-4.6); Neutrophils # 12.2 K/mcL (1.6-8.9); Platelet Estimate Decreased (Normal); Smudge Cells Present (Not Present)
[2021-11-07] MEDS ORDERED: Vancomycin 1,250 MG/262.5 ML IV.SOLN IVPB ONE (08:00)
[2021-11-07] MEDS: Chlorhexidine Rinse 15 ML MOUTHWASH MM SCH ×2 (08:19→19:57)
[2021-11-07] MEDS: Pantoprazole 40 MG VIAL IVP SCH (08:19)
[2021-11-07] MEDS: Dexamethasone Sodium Phos/PF 10 MG/ML VIAL IVP SCH (08:19)
[2021-11-07] MEDS: lamoTRIgine 100 MG TABLET GTUBE SCH (08:19)
[2021-11-07] MEDS: Insulin DETEMIR 100 UNIT/ML X5UNITS SUBQ SCH (08:19)
[2021-11-07] MEDS ORDERED: Argatroban 250 MG in 0.9 % Sodium Chloride 250 ML IVC SCH (08:45)
[2021-11-07] MEDS: MetroNIDAZOLE 500 MG/100 ML 500 MG/100 ML BAG IVPB SCH ×3 (09:06→23:47)
[2021-11-07] MEDS: Lacri-Lube 3.5 GM TUBE BOTH EYES SCH ×2 (09:07→19:57)
[2021-11-07 11:59] LABS: Albumin 2.5 g/dL (3.5-5.7); Albumin/Globulin Ratio 0.6 (1.1-2.2); Bilirubin,Direct 0.3 mg/dL (0.0-0.2); Bilirubin,Total 0.3 mg/dL (0.3-1.0); Total Protein 6.5 g/dL (6.4-8.9)
[2021-11-07] MEDS: FentaNYL (PF) 2,500 MCG/50 ML IV.SOLN IVC SCH ×2 (12:01→18:25)
[2021-11-07 13:37] LABS: ABG Ionized Calcium 1.09 mmol/L (1.15-1.35)
[2021-11-07] MEDS: Cefepime HCl 1,000 MG in 0.9 % Sodium Chloride Mini Bag 100 ML IVP SCH (17:38)
[2021-11-08] MEDS: Insulin LISPRO 300 UNITS/3 ML VIAL SUBQ SCH ×2 (00:09→05:32)
[2021-11-08] MEDS: Norepinephrine 4 MG/254 ML IV.SOLN IVC SCH (01:00)
[2021-11-08] MEDS ORDERED: Phenylephrine 10 MG in 0.9 % Sodium Chloride 250 ML IVC SCH (02:15)
[2021-11-08] MEDS: Midazolam HCl 50 MG/100 ML IV.SOLN IVC SCH (02:50)
[2021-11-08] MEDS: Artificial Tears SOLN 15 ML BOTTLE BOTH EYES SCH (03:14)
[2021-11-08] MEDS: PrismaSATE BGK 4/2.5 5,000 ML CRRT SCH ×2 (03:20)
[2021-11-08] MEDS ORDERED: Phenylephrine 50 MG in 0.9 % Sodium Chloride 250 ML IVC SCH (03:45)
[2021-11-08 04:09] LABS: VBG Ionized Calcium 1.08 mmol/L (1.15-1.35)
[2021-11-08 04:10] VITALS: TEMP 98
[2021-11-08] MEDS: Ipratropium 1 PUFF INHALER IH SCH ×3 (04:13→11:22)
[2021-11-08 04:17] LABS: Hematocrit 35.2 % (35.3-44.9); Hemoglobin 10.3 g/dL (11.5-15.4); Immature Platelets 15.6 % (1.1-6.1); Mean Corpuscular HGB Conc 29.3 g/dL (31.6-35.5); Mean Corpuscular Hemoglobin 27.1 pg (28.0-33.3); Mean Corpuscular Volume 92.6 fL (83.0-100.0); Mean Platelet Volume 13.5 fL (9.4-12.4); Nucleated Red Blood Cells 1.9 /100 WBC (0); Red Cell Distribution Width 16.8 % (11.5-14.5); White Blood Count 28.4 K/mcL (4.3-11.1)
[2021-11-08 04:24] LABS: ABG Base Excess -8 mEq/L (-2 to 3); ABG HCO3 21 mEq/L (21-27); ABG Oxygen Saturation 88 % (95-98); ABG PCO2 55 mmHg (35-45); ABG PH 7.19 pH Units (7.32-7.45); ABG PO2 68 mmHg (85-104); ABG TCO2 23 mEq/L (20-26); Blood Gas Modality ASSIST CONTROL; Blood Gas VT 420 cc
[2021-11-08 04:26] LABS: Albumin 2.4 g/dL (3.5-5.7); Albumin/Globulin Ratio 0.6 (1.1-2.2); Bilirubin,Total 0.3 mg/dL (0.3-1.0); Calcium 7.9 mg/dL (8.6-10.3); Magnesium 2.5 mg/dL (1.6-2.6); Potassium 5.2 mEq/L (3.5-5.1); Total Protein 6.4 g/dL (6.4-8.9)
[2021-11-08 04:27] LABS: Platelet Count 73 K/mcL (140-400)
[2021-11-08 05:01] LABS: Neutrophils # 24.4 K/mcL (1.6-8.9)
[2021-11-08 05:02] LABS: Lymphocytes # 1.7 K/mcL (0.6-4.6); Monocytes # 0.3 K/mcL (0.0-1.3)
[2021-11-08 05:04] LABS: Anisocytosis 1+ (Not Present); Platelet Estimate Decreased (Normal); Toxic Granulation Present (Not Present)
[2021-11-08 05:05] LABS: Large Platelets Present (Not Present); Smudge Cells Present (Not Present)
[2021-11-08] MEDS ORDERED: 0.9 % Sodium Chloride 1,000 ML ONE (05:51)
[2021-11-08] MEDS: FentaNYL (PF) 2,500 MCG/50 ML IV.SOLN IVC SCH (06:06)
[2021-11-08 09:24] VITALS: BP 73/31; PULSE 91; O2SAT 85
[2021-11-08] MEDS ORDERED: *HR* LORazepam 2 MG/ML VIAL IVP PRN (11:10)
[2021-11-08] MEDS ORDERED: Morphine Sulfate 2 MG/ML SYRINGE IVP PRN (11:11)
== END 2021-11-08 11:26 | disposition expired | DRG 870 ==
LOC: CDU → 2NENU 16:45 → ICNU 10-31 10:17
PROVIDERS: ADMIT Internal Medicine; ATTEND Internal Medicine